=== PATIENT | female | born 1980 | race African-American/Black ===

== ENCOUNTER 2017-04-30 04:40 | Emergency (ER) | payer MEDICAID, OTHER ==
[~2017-04-30] VITALS: Ht 177.8 cm; Wt 98.0 kg
[2017-04-30 04:47] VITALS: BP 150/92
--- NOTE | 2017-04-30 04:58 | NUR ---
36Y F BIB SELF C/O PAIN TO RIGHT HAND, INDEX AND MIDDLE FINGER. PT DENIES ANY DIRECT TRAUMA BUT DID STATE SHE WAS RECENTLY RELEASE FROM INCARCERATION. PT DENIES ANY N/V/D, SOB, CP AT THE MOMENT. PT AAOX4.
--- NOTE | 2017-04-30 05:08 | NUR ---
Patient being evaluated by physician at bedside.
[2017-04-30 05:15] VITALS: BP 136/82
--- NOTE | 2017-04-30 05:15 | NUR ---
Patient discharged with v/s stable. Written and verbal after care instructions given and explained. Patient alert, oriented and verbalized understanding of instructions. Ambulatory with steady gait. All questions addressed prior to discharge. ID band removed. Patient advised to follow up with PMD. Rx of KEFLEX 500MG given. Patient educated on indication of medication including possible reaction and side effects. Opportunity to ask questions provided and answered.
== END 2017-04-30 05:15 | disposition home or self-care (01) ==
LOC: MED 04:40
DX: L03.011 Cellulitis of right finger (principal); Z91.018 Allergy to other foods
CPT/HCPCS: 99283

== ENCOUNTER 2017-07-28 00:19 | Emergency (ER) | payer MEDICAID ==
[~2017-07-28] VITALS: Ht 180.3 cm; Wt 96.6 kg
[2017-07-28 00:23] VITALS: BP 153/90
[2017-07-28] MEDS ORDERED: CODE118S2 PO (00:27)
--- NOTE | 2017-07-28 00:30 | NUR ---
PT TAKEN TO CHAIR D
--- NOTE | 2017-07-28 00:32 | NUR ---
PATIENT IS A 36 Y/O FEMALE WHO PRESENTS TO THE ED C/O DIFFICULTY BREATHING. PT STATES, "I THINK MY ALLERGIES ARE ACTING UP." PT REPORTS 10/10 ACHING RIGHT EAR PAIN WITH DRAINAGE. PT DENIES CP, REPORTS DIFF BREATHING, LUNG SOUNDS CLEAR BL, DENIES N/V/D. PT AAOX4, RR EVEN/UNLABORED. PT AAOX4, RR EVEN/UNLABORED. PT REPOSITIONED FOR COMFORT, BED IN LOWEST POSITION. ER MD DR. MARIN NOTIFIED. WILL CONTINUE TO MONITOR.
--- NOTE | 2017-07-28 01:21 | NUR ---
Dr. Corey evaluating patient.
[2017-07-28] MEDS ORDERED: NEOMYCIN/POLYMYXIN/HC OT SOL. 10 ML BTL OT ONE (01:35)
[2017-07-28] MEDS ORDERED: AZITHROMYCIN 250 MG TAB PO ONE (01:35)
[2017-07-28] MEDS ORDERED: guaiFENesin/CODEINE 100/10MG 5 ML UDC PO ONE (01:35)
[2017-07-28 02:07] VITALS: BP 147/81
--- NOTE | 2017-07-28 02:07 | NUR ---
Patient discharged with v/s stable. Written and verbal after care instructions given and explained. Patient alert, oriented and verbalized understanding of instructions. Ambulatory with steady gait. All questions addressed prior to discharge. ID band removed. Patient advised to follow up with PMD. Rx of CORTISPORIN OTIC SOLUTION, PREDNISONE 20MG AND ZITHROMAX 250MG AND ROBITUSSIN DM 10MG-100MG/5ML given. Patient educated on indication of medication including possible reaction and side effects. Opportunity to ask questions provided and answered.
== END 2017-07-28 02:07 | disposition home or self-care (01) ==
LOC: MED 00:19
DX: J40 Bronchitis, not specified as acute or chronic (principal); Z91.02 Food additives allergy status
CPT/HCPCS: 99284